=== PATIENT | female | born 2000 | race Caucasian/White ===

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

== ENCOUNTER 2021-03-20 11:24 | Emergency (ER) | payer BC ==
[2021-03-20 17:26] LABS: SARS-CoV-2 PCR by NAA DETECTED (NotDetected)
== END 2021-03-20 13:10 | disposition home or self-care (01) ==
LOC: ERS 11:24
DX: U07.1 COVID-19 (principal)
CPT/HCPCS: 99284; U0003; U0005

== ENCOUNTER 2022-10-02 09:14 | Outpatient (CLI) | payer BC | END 2022-10-02 09:15 | disposition home or self-care (01) | LOC: BICRAD 09:14 | PROVIDERS: ATTEND Nurse Practitioner Family | DX: M54.50 Low back pain, unspecified (principal); R29.890 Loss of height | CPT/HCPCS: 72072; 72100 ==